=== PATIENT | male | born 1970 | race Caucasian/White ===

== ENCOUNTER → 2016-07-22 | Outpatient (CLI) | payer BC ==
--- NOTE | 2016-07-22 13:59 | DI ---
PA /LATERAL CHEST X-RAY, 07/22/2016 12:30 PM : Clinical History: Shortness of breath. Cough. Previous Exam: None at this facility. On both views the patient took a very shallow inspiration. There is no acute soft tissue or bony abno rmality. Heart size is normal. Lungs are clear. Mediastinal structures are normal. There are no pulmo nary nodules. Reading: Normal chest x-ray for the shallow inspiratory effort.
--- NOTE | 2016-07-22 15:37 | PE ---
[facility] Interpretive Statements [email or web address]
== END ==
LOC: RAD 12:17
PROVIDERS: ATTEND Specialist
DX: J47.9 Bronchiectasis, uncomplicated (principal); R06.02 Shortness of breath; R05 Cough
CPT/HCPCS: 71020; 94375